=== PATIENT | female | born 1985 | race American Indian/Alaskan Native ===

== ENCOUNTER 2017-03-21 17:39 | Emergency (ER) | payer MEDICAID ==
[2017-03-21 18:35] LABS: Basophils % (Auto) 0.4 % (0.0-1.8); Eosinophils % (Auto) 0.5 % (0.0-4.3); Hematocrit 40.1 % (30.3-42.9); Hemoglobin 13.6 gm/dl (10.1-14.3); Mean Corpuscular HGB Conc 34 % (30-34); Mean Corpuscular Hemoglobin 33 pg (28-32); Mean Corpuscular Volume 96 fl (79-97); Platelet Count 313 K/mm3 (140-440); Red Blood Count 4.17 M/mm3 (3.65-5.03); Red Cell Distribution Width 13.4 % (13.2-15.2); White Blood Count 9.7 K/mm3 (4.5-11.0)
[2017-03-21 18:52] LABS: Alanine Aminotransferase 9 units/L (7-56); Albumin 4.4 g/dL (3.9-5); Albumin/Globulin Ratio 1.3 %; Alkaline Phosphatase 77 units/L (35-129); Anion Gap 18 mmol/L; BUN/Creatinine Ratio 24; Blood Urea Nitrogen 12 mg/dL (7-17); Calcium 9.6 mg/dL (8.4-10.2); Carbon Dioxide 27 mmol/L (22-30); Chloride 95.9 mmol/L (98-107); Glucose 99 mg/dL (65-100); Potassium 4.8 mmol/L (3.6-5.0); Sodium 136 mmol/L (137-145); Total Protein 7.7 g/dL (6.3-8.2)
[2017-03-21 22:45] LABS: Bilirubin,Urine NEG (Negative); Blood,Urine SM (Negative); Ketones,Urine 20 mg/dL (Negative); Leukocyte Esterase,Urine NEG (Negative); Mucus,Urine 3+ /HPF; Nitrite,Urine NEG (Negative); Protein,Urine <15 mg/dL mg/dL (Negative); Urobilinogen,Urine < 2.0 mg/dL (<2.0)
[2017-03-21] MEDS ORDERED: TYLENOL #3 PO ONE (23:18)
[2017-03-21] MEDS ORDERED: MOTRIN PO ONE (23:18)
--- NOTE | 2017-03-21 23:23 | Emergency Department Report ---
ED Female HPI - General Chief complaint: Rectal Pain Stated complaint: ANAL BLEEDING Time Seen by Provider: 03/21/17 22:53 Source: patient Mode of arrival: Ambulatory Limitations: No Limitations - Related Data Previous Rx's Medication Instructions Recorded Last Taken Type Docusate Sodium [Colace CAP] 100 mg PO TID PRN #30 capsule 03/21/17 Unknown Rx Ibuprofen [Motrin] 600 mg PO Q8H PRN #30 tablet 03/21/17 Unknown Rx Lidocaine Topical 2% [Xylocaine 1 applicatio MM BID PRN #1 tube 03/21/17 Unknown Rx Topical 2%] PE/Shk Lvr/Mo/Pet,Wh [Preparation 1 gm MI BID PRN #1 tube 03/21/17 Unknown Rx H] Allergies Allergy/AdvReac Type Severity Reaction Status Date / Time No Known Allergies Allergy Unverified 03/21/17 17:55 ED Review of Systems ROS: Stated complaint: ANAL BLEEDING Other details as noted in HPI ED Past Medical Hx - Past Medical History Previous Medical History?: No - Surgical History Past Surgical History?: No - Social History Smoking Status: Never Smoker Substance Use Type: None - Medications Home Medications: Home Medications Medication Instructions Recorded Confirmed Last Taken Type Docusate Sodium [Colace CAP] 100 mg PO TID PRN #30 capsule 03/21/17 Unknown Rx Ibuprofen [Motrin] 600 mg PO Q8H PRN #30 tablet 03/21/17 Unknown Rx Lidocaine Topical 2% [Xylocaine 1 applicatio MM BID PRN #1 tube 03/21/17 Unknown Rx Topical 2%] PE/Shk Lvr/Mo/Pet,Wh [Preparation 1 gm MI BID PRN #1 tube 03/21/17 Unknown Rx H] ED Physical Exam - General Limitations: No Limitations General appearance: alert, in no apparent distress - Head Head exam: Present: atraumatic, normocephalic - Eye Eye exam: Present: normal appearance, PERRL, EOMI - ENT ENT exam: Present: mucous membranes moist - Neck Neck exam: Present: normal inspection - Respiratory Respiratory exam: Present: normal lung sounds bilaterally. Absent: respiratory distress - Cardiovascular Cardiovascular Exam: Present: regular rate, normal rhythm. Absent: systolic murmur, diastolic murmur, rubs, gallop - GI/Abdominal GI/Abdominal exam: Present: soft, normal bowel sounds - Rectal Rectal exam: Present: heme (-) stool, hemorrhoids - Extremities Exam Extremities exam: Present: normal inspection - Back Exam Back exam: Present: normal inspection - Neurological Exam Neurological exam: Present: alert, oriented X3 - Psychiatric Psychiatric exam: Present: normal affect, normal mood - Skin Skin exam: Present: warm, dry, intact, normal color. Absent: rash ED Course Vital Signs 03/21/17 17:52 Temperature 97.9 F Pulse Rate 68 Respiratory 18 Rate Blood Pressure 113/73 O2 Sat by Pulse 96 Oximetry ED Medical Decision Making - Lab Data Result diagrams: 03/21/17 17:58 03/21/17 17:58 - Medical Decision Making A/P: External hemorrhoids 1-stool softener, NSAIDs, topical preparation H and lidocaine when necessary 2-grossly negative guaiac, guaiac negative on Hemoccult card 3-CBC within normal limits 4- follow-up with gastroenterology/surgery. Patient has small external hemorrhoid is not thrombosed and no signs of clinical infection or abscess on exam. Critical care attestation.: If time is entered above; I have spent that time in minutes in the direct care of this critically ill patient, excluding procedure time. ED Disposition Clinical Impression: External hemorrhoid Disposition: DC-01 TO HOME OR SELFCARE Is pt being admited?: No Does the pt Need Aspirin: No Condition: Stable Instructions: Hemorrhoids (ED), Rectal Bleeding (ED) Prescriptions: Docusate Sodium [Colace CAP] 100 mg PO TID PRN #30 capsule PRN Reason: Constipation Ibuprofen [Motrin] 600 mg PO Q8H PRN #30 tablet PRN Reason: Pain Lidocaine Topical 2% [Xylocaine Topical 2%] 1 applicatio MM BID PRN #1 tube PRN Reason: Pain PE/Shk Lvr/Mo/Pet,Wh [Preparation H] 1 gm MI BID PRN #1 tube PRN Reason: Itching Referrals: PARISA MENDZE DO [Staff Physician] - 3-5 Days [facility] [Provider Group] - 3-5 Days Time of Disposition: 23:18
[2017-03-21 23:33] VITALS: BP 118/69
== END 2017-03-21 23:34 | disposition home or self-care (01) ==
LOC: ED 17:39
DX: K64.4 Residual hemorrhoidal skin tags (principal)
CPT/HCPCS: 36415; 80053; 81001; 85025; 99283

== ENCOUNTER 2020-11-22 21:33 | Inpatient (IN) | payer MEDICAID ==
[2020-11-22] MEDS ORDERED: SODIUM CHLORIDE 0.9% 1000 ML 1,000 ML IV ONE (22:41)
[2020-11-22] MEDS ORDERED: LORazepam 2 MG/ML VIAL IV ONE (22:41)
--- NOTE | 2020-11-22 22:48 | Emergency Department Report ---
ED General Adult HPI - General Chief complaint: Weakness Stated complaint: HAND/FACE NUMBNESS Time Seen by Provider: 11/22/20 22:11 Source: patient Mode of arrival: Ambulatory Limitations: Physical Limitation - History of Present Illness Initial comments: 35-year-old female patient with history of peripheral neuropathy presents to the emergency department with complaints of numbness in her jaw, both hands, and both legs progressively worsening for several months. For the last several weeks, symptoms have been worse in the right arm and right leg. Additionally, patient endorses blurred vision, more pronounced on the left eye, as well as intermittent headaches. No fall, trauma, or injury. No recent travel. No recent illnesses. No recent vaccinations. No history of prior surgeries. Patient was diagnosed with peripheral neuropathy at another emergency department and referred to a neurologist for further outpatient evaluation. However, she was unable to comply with follow-up instructions due to financial constraints. Patient states her ability to walk has progressively worsened to the point where she cannot ambulate without assistance, and she has been experiencing bladder incontinence for several weeks. Denies syncope, seizure, chest pain, shortness of breath, vomiting, diarrhea, back pain, neck pain. Denies all other complain ts at this time. - Related Data Previous Rx's Medication Instructions Recorded Last Taken Type Docusate Sodium [Colace CAP] 100 mg PO TID PRN #30 capsule 03/21/17 Unknown Rx Ibuprofen [Motrin] 600 mg PO Q8H PRN #30 tablet 03/21/17 Unknown Rx Lidocaine Topical 2% 30Ml 1 applicatio MM BID PRN #1 tube 03/21/17 Unknown Rx [Xylocaine Topical 2% 30Ml] PE/Mo/Pet,Wh [Preparation H] 1 gm ID BID PRN #1 tube 03/21/17 Unknown Rx Allergies Allergy/AdvReac Type Severity Reaction Status Date / Time No Known Allergies Allergy Unverified 03/21/17 17:55 ED Review of Systems ROS: Stated complaint: HAND/FACE NUMBNESS Other details as noted in HPI Other: GENERAL: Negative for fever, chills, weight change, anorexia, fatigue. EYES: Positive for blurred vision. ENT: Negative for ear pain, difficulty hearing, sore throat, nasal congestion, epistaxis. CARDIOVASCULAR: Negative for chest pain, palpitations, lower extremity swelling. PULMONARY: Negative for cough, dyspnea, wheezing, orthopnea, cyanosis. GASTROINTESTINAL: Negative for abdominal pain, nausea, vomiting, diarrhea, constipation. GENITOURINARY: Positive for urinary incontinence. MUSCULOSKELETAL: Positive for joint pain. NEUROLOGICAL: Positive for headaches, numbness, weakness, paresthesias. INTEGUMENTARY: Negative for erythema, rash, diaphoresis, laceration, ecchymosis. HEMATOLOGICAL: Negative for hemoptysis, hematemesis, hematochezia, hematuria. PSYCHIATRIC: Negative for hallucinations, suicidal ideation, homicidal ideation, anxiety, depression. ED Past Medical Hx - Past Medical History Previous Medical History?: Yes Additional medical history: anemia, peripheral neuropathy - Surgical History Past Surgical History?: Yes Additional Surgical History: x1 - Social History Smoking Status: Never Smoker Substance Use Type: None - Medications Home Medications: Home Medications Medication Instructions Recorded Confirmed Last Taken Type Docusate Sodium [Colace CAP] 100 mg PO TID PRN #30 capsule 03/21/17 Unknown Rx Ibuprofen [Motrin] 600 mg PO Q8H PRN #30 tablet 03/21/17 Unknown Rx Lidocaine Topical 2% 30Ml 1 applicatio MM BID PRN #1 tube 03/21/17 Unknown Rx [Xylocaine Topical 2% 30Ml] PE/Mo/Pet,Wh [Preparation H] 1 gm ID BID PRN #1 tube 03/21/17 Unknown Rx ED Physical Exam - General Limitations: Physical Limitation - Other Other exam information: General: Awake and alert. Tearful, anxious. Head: Atraumatic, normocephalic. Eyes: EOMI. Pupils are equal and round. Normal sclera and conjunctiva. ENT: Oral mucosa is moist. Normal pharyngeal exam. Neck: Supple. No lymphadenopathy. Pulmonary: No respiratory distress. Clear to auscultation bilaterally. Cardiac: Tachycardic. Pulses are palpable and equal bilaterally. No lower extremity cyanosis or edema. Skin: Warm and dry. No rashes. Abdomen: Soft, non-tender, non-protuberant. No guarding, rigidity, or rebound. Bowel sounds are normal. No organomegaly or masses noted. Back: Normal alignment. No CVA tenderness. Extremities: Symmetrical. Full range of motion intact. Neurological: Alert and oriented. Diminished sensation to light palpation along right upper and right lower extremity. Strength is 5/5 on the left upper and left lower extremity, 4/5 on the right upper extremity, 3/5 on the right lower extremity. Psych: Cooperative. Appropriate mood and affect. Speech is evenly metered. Thou ghts are logically construed. ED Course Vital Signs 11/22/20 21:41 Temperature 98.2 F Pulse Rate 131 H Respiratory 16 Rate Blood Pressure 124/92 [Right] O2 Sat by Pulse 96 Oximetry ED Medical Decision Making - Lab Data Result diagrams: 11/22/20 22:24 11/22/20 22:24 - Medical Decision Making Differential diagnosis including but not limited to: dehydration, electrolyte abnormality, hypoglycemia, diabetes, hypothyroidism, cerebra ischemia, intracranial hemorrhage, space-occupying lesion, transverse myelitis, multiple sclerosis, Guillain-Villalpando syndrome, encephalitis Patient presents to the emergency department with progressively worsening neurological complaints for several weeks. Patient is tearful and anxious on arrival with heart rate of 130 bpm. Given IV fluids and Ativan. She was previously diagnosed with peripheral neuropathy and referred to a neurologist for further evaluation but was unable to follow-up due to financial constraints. Her upper and lower extremity weakness, as well as her right sided sensory deficits, have worsened to the point where she is unable to ambulate without assistance. Additionally, patient reports urinary and fecal incontinence for the last several weeks. There has been no fall, trauma, or injury. Patient has been experiencing intermittent headaches without associated neck or back pain. Stroke protocol not initiated due to prolonged symptom duration. Labs and imaging are unremarkable. test is negative. Further diagnostic work- up to include MRI and neurological consultation is warranted for further evaluation of these symptoms, particularly since she has been unable to obtain the necessary studies on an outpatient basis. Multiple sclerosis has not been excluded; given one-time dose of IV Solu-Medrol while awaiting further work-up. Case discussed with hospitalist, who agrees to admit. Patient expressed understanding and is agreeable to plan of care. Case discussed with Dr. Evans, attending emergency physician, who personally evaluated the patient and agrees with diagnostic work-up/plan of care. Critical care attestation.: If time is entered above; I have spent that time in minutes in the direct care of this critically ill patient, excluding procedure time. ED Disposition Clinical Impression: Numbness, Weakness Disposition: OP ADMIT IP TO THIS HOSP Is pt being admited?: Yes Condition: Stable Time of Disposition: 00:12
[2020-11-22 22:56] LABS: Basophils # (Auto) 0.1 K/mm3 (0.0-0.1); Basophils % (Auto) 1.7 % (0.0-1.8); Eosinophils # (Auto) 0.2 K/mm3 (0.0-0.4); Eosinophils % (Auto) 2.5 % (0.0-4.3); Hematocrit 38.3 % (30.3-42.9); Lymphocytes # (Auto) 3.2 K/mm3 (1.2-5.4); Lymphocytes % (Auto) 38.4 % (13.4-35.0); Mean Corpuscular HGB Conc 37 % (30-34); Mean Corpuscular Volume 121 fl (79-97); Monocytes # (Auto) 0.8 K/mm3 (0.0-0.8); Monocytes % (Auto) 10.2 % (0.0-7.3); Platelet Count 363 K/mm3 (140-440); Red Blood Count 3.18 M/mm3 (3.65-5.03); Red Cell Distribution Width 14.6 % (13.2-15.2)
[2020-11-22 23:11] LABS: Alanine Aminotransferase 12 units/L (7-56); Albumin 4.3 g/dL (3.9-5); Blood Urea Nitrogen 5 mg/dL (7-17); Calcium 8.9 mg/dL (8.4-10.2); Hemolysis Index 2
[2020-11-22 23:13] LABS: BUN/Creatinine Ratio 8
--- NOTE | 2020-11-22 23:54 | Cat Scan Report ---
CT HEAD WITHOUT CONTRAST INDICATION : multiple neurological complaints. TECHNIQUE: Axial, coronal and sagittal CT imaging was performed from the skull apex through the skul l base without contrast. All CT scans at this location are performed using CT dose reduction for ALA RA by means of automated exposure control. COMPARISON: None available. FINDINGS: PARENCHYMA: No mass, midline shift, hemorrhage, extraaxial collection or acute territorial infarctio n. VENTRICLES: Symmetric and normal in size. SOFT TISSUES: No significant abnormality of the included soft tissues/orbits. BONES: No acute osseous abnormality. SINUSES: No significant abnormality. ADDITIONAL FINDINGS: None. IMPRESSION: 1. No acute intracranial abnormality. Signer Name: Adam Cadena MD Signed: 11/22/2020 11:49 PM Workstation Name: [id number]
[2020-11-23] MEDS ORDERED: methylPREDNISolone Sod Succinate 125 MG/2 ML INJ IV ONE (00:05)
[2020-11-23] MEDS ORDERED: ACETAMINOPHEN 325 MG TAB PO PRN (01:09)
[2020-11-23] MEDS ORDERED: ALBUTEROL 2.5 MG/3 ML NEBU IH PRN (01:09)
[2020-11-23] MEDS ORDERED: ONDANSETRON 4 MG/2 ML INJ IV PRN (01:09)
--- NOTE | 2020-11-23 01:22 | History and Physical Report ---
History of Present Illness Date of examination: 11/23/20 Date of admission: 11/23/20 Chief complaint: Numbness of hands and face, weakness History of present illness: 35-year-old female with history of peripheral neuropathy was brought to the emergency room because of numbness in her jaw, both hands, and both legs progressively worsening for several months. For the last several weeks, symptoms have been worse in the right arm and right leg. Additionally, patient endorses blurred vision, more pronounced on the left eye, as well as intermittent headaches. No fall, trauma, or injury. No recent travel. No recent illnesses. No recent vaccinations. No history of prior surgeries. Patient was diagnosed with peripheral neuropathy at another emergency department and referred to a neurologist for further outpatient evaluation. However, she was unable to comply with follow-up instructions due to financial constraints. Patient states her ability to walk has progressively worsened to the point where she cannot ambulate without assistance, and she has been experiencing bladder incontinence for several weeks. Initial CT scan of the head shows no acute intracranial abnormality Past History Past Medical History: other (Peripheral neuropathy) Medications and Allergies Allergies Allergy/AdvReac Type Severity Reaction Status Date / Time No Known Allergies Allergy Unverified 03/21/17 17:55 Home Medications Medication Instructions Recorded Confirmed Last Taken Type Docusate Sodium [Colace CAP] 100 mg PO TID PRN #30 capsule 03/21/17 Unknown Rx Ibuprofen [Motrin] 600 mg PO Q8H PRN #30 tablet 03/21/17 Unknown Rx Lidocaine Topical 2% 30Ml 1 applicatio MM BID PRN #1 tube 03/21/17 Unknown Rx [Xylocaine Topical 2% 30Ml] PE/Mo/Pet,Wh [Preparation H] 1 gm ID BID PRN #1 tube 03/21/17 Unknown Rx Active Meds: Active Medications Acetaminophen (Acetaminophen 325 Mg Tab) 650 mg PO Q4H PRN PRN Reason: Pain MILD(1-3)/Fever >100.5/LARIOS Albuterol (Albuterol 2.5 Mg/3 Ml Nebu) 2.5 mg IH Q4HRT PRN PRN Reason: Shortness Of Breath Aspirin (Aspirin 325 Mg Tab) 325 mg PO QDAY RUBY Atorvastatin Calcium (Atorvastatin 40 Mg Tab) 40 mg PO QHS RUBY Famotidine (Famotidine 20 Mg Tab) 20 mg PO BID RUBY Heparin Sodium (Porcine) (Heparin 5,000 Unit/1 Ml Vial) 5,000 unit SUB-Q Q8HR RUBY Ondansetron HCl (Ondansetron 4 Mg/2 Ml Inj) 4 mg IV Q8H PRN PRN Reason: Nausea And Vomiting Sodium Chloride (Sodium Chloride 0.9% 10 Ml Flush Syringe) 10 ml INJ PRN PRN PRN Reason: LINE FLUSH Sodium Chloride (Sodium Chloride 0.9% 10 Ml Flush Syringe) 10 ml IV BID RUBY Sodium Chloride (Sodium Chloride 0.9% 10 Ml Flush Syringe) 10 ml IV PRN PRN PRN Reason: LINE FLUSH Review of Systems Neurological: weakness, parathesias, numbness, headaches Exam - Constitutional Vitals: Temp Pulse Resp BP Pulse Ox 98.2 F 131 H 16 124/92 96 11/22/20 21:41 11/22/20 21:41 11/22/20 21:41 11/22/20 21:41 11/22/20 21:41 General appearance: Present: no acute distress, well-nourished - EENT Eyes: Present: PERRL ENT: hearing intact, clear oral mucosa - Neck Neck: Present: supple, normal ROM - Respiratory Respiratory effort: normal Respiratory: bilateral: CTA - Cardiovascular Heart Sounds: Present: S1 & S2. Absent: rub, click - Extremities Extremities: pulses symmetrical, No edema Peripheral Pulses: within normal limits - Abdominal General gastrointestinal: Present: soft, non-tender, non-distended, normal bowel sounds Female genitourinary: Present: normal - Integumentary Integumentary: Present: clear, warm, dry - Musculoskeletal Musculoskeletal: gait normal, strength equal bilaterally - Psychiatric Psychiatric: appropriate mood/affect, intact judgment & insight - Neurologic Neurologic: CNII-XII intact, other (Alert and oriented. Diminished sensation to light palpation along right upper and right lower extremity. Strength is 5/5 on the left upper and left lower extremity, 4/5 on the right upper extremity, 3/5 on the right lower extremity) Results - Labs CBC & Chem 7: 11/22/20 22:24 11/22/20 22:24 Labs: Laboratory Last Values WBC 8.3 K/mm3 (4.5-11.0) 11/22/20 22:24 RBC 3.18 M/mm3 (3.65-5.03) L 11/22/20 22:24 Hgb 14.0 gm/dl (10.1-14.3) 11/22/20 22:24 Hct 38.3 % (30.3-42.9) 11/22/20 22:24 MCV 121 fl (79-97) H 11/22/20 22:24 MCH 44 pg (28-32) H 11/22/20 22:24 MCHC 37 % (30-34) H 11/22/20 22:24 RDW 14.6 % (13.2-15.2) 11/22/20 22:24 Plt Count 363 K/mm3 (140-440) 11/22/20 22:24 Lymph % (Auto) 38.4 % (13.4-35.0) H 11/22/20 22:24 [place] % (Auto) 10.2 % (0.0-7.3) H 11/22/20 22:24 Eos % (Auto) 2.5 % (0.0-4.3) 11/22/20 22:24 Baso % (Auto) 1.7 % (0.0-1.8) 11/22/20 22:24 Lymph # (Auto) 3.2 K/mm3 (1.2-5.4) 11/22/20 22:24 [place] # (Auto) 0.8 K/mm3 (0.0-0.8) 11/22/20 22:24 Eos # (Auto) 0.2 K/mm3 (0.0-0.4) 11/22/20 22:24 Baso # (Auto) 0.1 K/mm3 (0.0-0.1) 11/22/20 22:24 Seg Neutrophils % 47.2 % (40.0-70.0) 11/22/20 22:24 Seg Neutrophils # 3.9 K/mm3 (1.8-7.7) 11/22/20 22:24 Sodium 139 mmol/L (137-145) 11/22/20 22:24 Potassium 3.8 mmol/L (3.6-5.0) 11/22/20 22:24 Chloride 107.5 mmol/L (98-107) H 11/22/20 22:24 Carbon Dioxide 19 mmol/L (22-30) L 11/22/20 22:24 Anion Gap 16 mmol/L 11/22/20 22:24 BUN 5 mg/dL (7-17) L 11/22/20 22:24 Creatinine 0.6 mg/dL (0.6-1.2) 11/22/20 22:24 Estimated GFR > 60 ml/min 11/22/20 22:24 BUN/Creatinine Ratio 8 % 11/22/20 22:24 Glucose 102 mg/dL (65-100) H 11/22/20 22:24 Calcium 8.9 mg/dL (8.4-10.2) 11/22/20 22:24 Magnesium 2.10 mg/dL (1.7-2.3) 11/22/20 22:50 Total Bilirubin 0.40 mg/dL (0.1-1.2) 11/22/20 22:24 AST 16 units/L (5-40) 11/22/20 22:24 ALT 12 units/L (7-56) 11/22/20 22:24 Alkaline Phosphatase 72 units/L (35-129) 11/22/20 22:24 Total Protein 7.7 g/dL (6.3-8.2) 11/22/20 22:24 Albumin 4.3 g/dL (3.9-5) 11/22/20 22:24 Albumin/Globulin Ratio 1.3 % 11/22/20 22:24 TSH 0.343 mlU/mL (0.270-4.200) 11/22/20 22:50 HCG, Qual Negative (Negative) 11/22/20 22:50 - Imaging and Cardiology CT Scan - head: report reviewed Assessment and Plan VTE prophylaxis?: Chemical Plan of care discussed with patient/family: Yes - Patient Problems (1) Peripheral neuropathy Current Visit: Yes Status: Acute Plan to address problem[facility] Aspirin 325 mg p.o. daily. Lipitor 40 mg p.o. daily. We will do the MRI of the brain with and without contrast and MRA of the brain and neck with and without contrast. Echocardiogram. PT OT speech evaluation. Neurology evaluation. Patient get 1 dose of steroid in the emergency room (2) Numbness Current Visit: Yes Status: Acute Plan to address problem: Aspirin 325 mg p.o. daily. Lipitor 40 mg p.o. daily. We will do the MRI of the brain with and without contrast and MRA of the brain and neck with and without contrast. Echocardiogram. PT OT speech evaluation. Neurology evaluation. Patient get 1 dose of steroid in the emergency room (3) Weakness Current Visit: Yes Status: Acute Plan to address problem: Multivitamin 1 tablet p.o. daily. Reconsult PT OT any speech evaluation. Neurology consult (4) DVT prophylaxis Current Visit: Yes Status: Acute Plan to address problem: Heparin 5000 units subcu every 8 hours for DVT prophylaxis. Pepcid 20 mg p.o. twice daily for GI prophylaxis. Patient is a full code
[2020-11-23] MEDS ORDERED: PE/MO/PET,WH 10 APPLIC/28 GM TUBE PR PRN (01:23)
[2020-11-23] MEDS ORDERED: DOCUSATE SODIUM 100 MG CAP PO PRN (01:23)
[2020-11-23] MEDS ORDERED: IBUPROFEN 600 MG TAB PO PRN (01:23)
[2020-11-23] MEDS ORDERED: methylPREDNISolone Sod Succinate 125 MG/2 ML INJ ONE ×2 (02:07)
[2020-11-23] MEDS: MULTIVITAMINS ,THERAPEUTIC TAB PO SCH ×2 (03:57→12:00)
[2020-11-23 04:32] LABS: Bilirubin,Urine NEG (Negative); Blood,Urine SM (Negative); Color,Urine Yellow (Yellow); Mucus,Urine 3+ /HPF; Protein,Urine <15 mg/dL mg/dL (Negative)
[2020-11-23 04:55] LABS: Amphetamine Screen,Urine Negative; Benzodiazepines Screen,Urine Negative; Cocaine Screen,Urine Negative; Methadone Screen,Urine Negative; Opiate Screen,Urine Negative
[2020-11-23 05:26] LABS: Cannabinoid Screen,Urine Positive
[2020-11-23] MEDS: HEPARIN 5,000 UNIT/1 ML VIAL SUB-Q SCH ×3 (07:45→21:53)
--- NOTE | 2020-11-23 10:21 | Magnetic Resonance Report ---
MRI BRAIN WITHOUT CONTRAST INDICATION / CLINICAL INFORMATION: stroke. TECHNIQUE: Multisequence, multiplanar images were obtained. COMPARISON: CT head 11/14/2020 FINDINGS: CEREBRAL and CEREBELLAR HEMISPHERES: No evidence of mass or mass effect. No midline shift. No acute hemorrhage. No diffusion restriction to suggest acute infarct. No extra-axial fluid collection. M inimal nonspecific T2 signal abnormalities in the white matter are nonspecific but most likely relate d to chronic microangiopathy or less likely demyelination. VENTRICLES: Normal in size and configuration for age. VISUALIZED ORBITS: No significant abnormality. VISUALIZED PARANASAL SINUSES: No significant abnormality. ADDITIONAL FINDINGS: None. IMPRESSION: No acute intracranial abnormality is identified. No evidence for hemorrhage, mass or acute ischemia. Minimal nonspecific chronic white matter changes. MRA HEAD WITHOUT CONTRAST HISTORY: Stroke COMPARISON: MR brain performed the same day TECHNIQUE: Routine MRA of the head is performed. 3-D/MIP reformats postprocessed. CONTRAST: None. FINDINGS: Intracranial vertebral arteries: No significant abnormality. Basilar artery: No significant abnormality. Posterior cerebral arteries: No significant abnormality. Intracranial internal carotid arteries: No significant abnormality. Anterior cerebral arteries: No significant abnormality. Middle cerebral arteries: No significant abnormality. Additional findings: Small left posterior communicating artery is noted. IMPRESSION: No significant abnormality. Signer Name: Joel Schafer Jr, MD Signed: 11/23/2020 10:17 AM Workstation Name: [id number]
--- NOTE | 2020-11-23 11:44 | Event Note ---
Date: 11/23/20 Patient was admitted earlier this morning. Patient admitted for numbness and generalized weakness. Patient was diagnosed with neuropathy. Neurology consulted. Patient started on gabapentin for neuropathy and she is also complaining severe pain and I put her on tramadol. Continue management as outlined in HPI.
[2020-11-23] MEDS: traMADol 50 MG TAB PO PRN ×2 (11:59→21:22)
[2020-11-23] MEDS: FAMOTIDINE 20 MG TAB PO SCH ×2 (12:00→21:55)
[2020-11-23] MEDS: ASPIRIN 325 MG TAB PO SCH (12:02)
[2020-11-23] MEDS: GABAPENTIN 100 MG CAP PO SCH ×2 (14:55→21:55)
--- NOTE | 2020-11-23 15:12 | Consultation ---
History of Present Illness Consult date: 11/23/20 Reason for Consult: Numbness History of present illness: 35-year-old female with history of peripheral neuropathy was brought to the emergency room because of numbness in her jaw, both hands, and both legs progressively worsening for several months. For the last several weeks, symptoms have been worse in the right arm and right leg. Additionally, patient endorses blurred vision, more pronounced on the left eye, as well as intermittent headaches. No fall, trauma, or injury. No recent travel. No recent illnesses. No recent vaccinations. No history of prior surgeries. Patient was diagnosed with peripheral neuropathy at another emergency department and referred to a neurologist for further outpatient evaluation. However, she was unable to comply with follow-up instructions due to financial constraints. Patient states her ability to walk has progressively worsened to the point where she cannot ambulate without assistance, and she has been experiencing bladder incontinence for several weeks. Initial CT scan of the head shows no acute intracranial abnormality History obtained from Patient . Symptoms are progressive in the last 18 months and severe weakness in the LE. Past History Past Medical History: other (Peripheral neuropathy) Medications and Allergies Allergies Allergy/AdvReac Type Severity Reaction Status Date / Time No Known Allergies Allergy Unverified 03/21/17 17:55 Home Medications Medication Instructions Recorded Confirmed Last Taken Type Docusate Sodium [Colace CAP] 100 mg PO TID PRN #30 capsule 03/21/17 Unknown Rx Ibuprofen [Motrin] 600 mg PO Q8H PRN #30 tablet 03/21/17 Unknown Rx Lidocaine Topical 2% 30Ml 1 applicatio MM BID PRN #1 tube 03/21/17 Unknown Rx [Xylocaine Topical 2% 30Ml] PE/Mo/Pet,Wh [Preparation H] 1 gm [place] BID PRN #1 tube 03/21/17 Unknown Rx Active Meds: Active Medications Acetaminophen (Acetaminophen 325 Mg Tab) 650 mg PO Q4H PRN PRN Reason: Pain MILD(1-3)/Fever >100.5/LARIOS Last Admin: 11/23/20 12:00 Dose: 650 mg Documented by: Albuterol (Albuterol 2.5 Mg/3 Ml Nebu) 2.5 mg IH Q4HRT PRN PRN Reason: Shortness Of Breath Aspirin (Aspirin 325 Mg Tab) 325 mg PO QDAY RUBY Last Admin: 11/23/20 12:02 Dose: 325 mg Documented by: Atorvastatin Calcium (Atorvastatin 40 Mg Tab) 40 mg PO QHS [facility] Docusate Sodium (Docusate Sodium 100 Mg Cap) 100 mg PO TID PRN PRN Reason: Constipation Famotidine (Famotidine 20 Mg Tab) 20 mg PO BID [facility] Last Admin: 11/23/20 12:00 Dose: 20 mg Documented by: Gabapentin (Gabapentin 100 Mg Cap) 100 mg PO Q8HR [facility] Last Admin: 11/23/20 14:55 Dose: 100 mg Documented by: Heparin Sodium (Porcine) (Heparin 5,000 Unit/1 Ml Vial) 5,000 unit SUB-Q Q8HR [facility] Last Admin: 11/23/20 14:06 Dose: Not Given Documented by: Ibuprofen (Ibuprofen 600 Mg Tab) 600 mg PO Q8H PRN PRN Reason: PAIN (1-4) Multivitamins (Multivitamins ,Therapeutic Tab) 1 each PO DAILY [facility] Last Admin: 11/23/20 12:00 Dose: 1 each Documented by: Ondansetron HCl (Ondansetron 4 Mg/2 Ml Inj) 4 mg IV Q8H PRN PRN Reason: Nausea And Vomiting Phenyleph/Shark Oil/Min Oil/Petrol (Pe/Mo/Pet,Wh 10 Applic/28 Gm Tube) 0.357 applic [place] BID PRN PRN Reason: Itching Sodium Chloride (Sodium Chloride 0.9% 10 Ml Flush Syringe) 10 ml IV PRN PRN PRN Reason: LINE FLUSH Sodium Chloride (Sodium Chloride 0.9% 10 Ml Flush Syringe) 10 ml IV BID [facility] Last Admin: 11/23/20 12:00 Dose: 10 ml Documented by: Tramadol HCl (Tramadol 50 Mg Tab) 100 mg PO Q6H PRN PRN Reason: Pain, Moderate (4-6) Last Admin: 11/23/20 11:59 Dose: 100 mg Documented by: Physical Examination - Vital Signs Vital Signs: Vital Signs Temp Pulse Resp BP Pulse Ox 98.2 F 131 H 16 124/92 96 11/22/20 21:41 11/22/20 21:41 11/22/20 21:41 11/22/20 21:41 11/22/20 21:41 - Physical Exam Narrative exam: The patient is alert, There is weakness in the LE strength is aout 3/5 , dorsiflexors and planter flexors are weakness , sensory loss in the LE . Upper Extremity weakness as well noted. DTRs ? absent performed by the tech. Results - Laboratory Findings CBC and BMP: 11/22/20 22:24 11/22/20 22:24 Abnormal Lab Findings: Abnormal Labs 11/22/20 11/22/20 11/23/20 22:24 22:24 04:18 RBC 3.18 L MCV 121 H MCH 44 H MCHC 37 H Lymph % (Auto) 38.4 H [place] % (Auto) 10.2 H Chloride 107.5 H Carbon Dioxide 19 L BUN 5 L Glucose 102 H Urine WBC (Auto) 15.0 H Assessment and Plan 1. 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 Rule Out Cervical Spinal Cord Issues. 3. Low Vitamin B12 needs IM Vitamin B12 1000 ug every other day for next 1 week . 4. LP is recommended for CSF Protien / Sugar / VDRL 5. If CSF Protien is High will recommend IVIG . 6. Follow up with results . Dr. Carson
[2020-11-24] MEDS: HEPARIN 5,000 UNIT/1 ML VIAL SUB-Q SCH ×3 (05:57→21:31)
[2020-11-24] MEDS: GABAPENTIN 100 MG CAP PO SCH ×3 (05:57→21:31)
--- NOTE | 2020-11-24 08:47 | Progress Note ---
Assessment and Plan Assessment and plan: (1) Peripheral neuropathy Current Visit: Yes Status: Acute Plan to address problem: Admit to the [facility]. Aspirin 325 mg p.o. daily. Lipitor 40 mg p.o. daily. We will do the MRI of the brain with and without contrast and MRA of the brain and neck with and without contrast. Echocardiogram. PT OT speech evaluation. Neurology evaluation. Patient get 1 dose of steroid in the emergency room (2) Numbness Current Visit: Yes Status: Acute Plan to address problem: Aspirin 325 mg p.o. daily. Lipitor 40 mg p.o. daily. We will do the MRI of the brain with and without contrast and MRA of the brain and neck with and without contrast. Echocardiogram. PT OT speech evaluation. Neurology evaluation. Patient get 1 dose of steroid in the emergency room (3) Weakness Current Visit: Yes Status: Acute Plan to address problem: Multivitamin 1 tablet p.o. daily. Reconsult PT OT any speech evaluation. Neurology consult (4) DVT prophylaxis Current Visit: Yes Status: Acute Plan to address problem: Heparin 5000 units subcu every 8 hours for DVT prophylaxis. Pepcid 20 mg p.o. twice daily for GI prophylaxis. Patient is a full code 11/24; patient was seen and evaluated by telemetry neurologist and he recommend to do lumbar puncture and to CSF analysis. If protein is high he recommend to start her on IVIG. MRI/MRA head negative. Echo no PFO. PT evaluated and recommend acute rehab but patient stated she wants to go home with home health. She can be discharged home after LP fluid analysis with home PT/OT. History Interval history: Patient was seen and evaluated this this morning Patient has mild right lower extremity weakness and numbness on the fingers Hospitalist Physical - Physical exam Narrative exam: Not in cardiopulmonary distress. The patient appeared well nourished and normally developed. Vital signs as documented. Head exam is unremarkable. No scleral icterus . Neck is without jugular venous distension, thyromegaly, or carotid bruits. Lungs are clear to auscultation. Cardiac exam reveals regular rate and Rhythm. Abdominal exam reveals normal bowel sounds, nontender, no organomegaly. Extremities are nonedematous and both femoral and pedal pulses are normal. APPLICATION DESIGNER: Alert and oriented 3. Lower extremity weakness. - Constitutional Vitals: Temp Pulse Resp BP Pulse Ox 97.8 F 73 18 107/71 99 11/24/20 05:19 11/24/20 05:19 11/24/20 05:19 11/24/20 05:19 11/24/20 05:19 General appearance: Present: no acute distress, well-nourished HEART Score - HEART Score Troponin: Troponin T < 0.010 ng/mL (0.00-0.029) 11/23/20 01:41 Results - Labs CBC & Chem 7: 11/24/20 08:39 11/24/20 08:39 Labs: Laboratory Last Values WBC 8.3 K/mm3 (4.5-11.0) 11/22/20 22:24 RBC 3.18 M/mm3 (3.65-5.03) L 11/22/20 22:24 Hgb 14.0 gm/dl (10.1-14.3) 11/22/20 22:24 Hct 38.3 % (30.3-42.9) 11/22/20 22:24 MCV 121 fl (79-97) H 11/22/20 22:24 MCH 44 pg (28-32) H 11/22/20 22:24 MCHC 37 % (30-34) H 11/22/20 22:24 RDW 14.6 % (13.2-15.2) 11/22/20 22:24 Plt Count 363 K/mm3 (140-440) 11/22/20 22:24 Lymph % (Auto) 38.4 % (13.4-35.0) H 11/22/20 22:24 [place] % (Auto) 10.2 % (0.0-7.3) H 11/22/20 22:24 Eos % (Auto) 2.5 % (0.0-4.3) 11/22/20 22:24 Baso % (Auto) 1.7 % (0.0-1.8) 11/22/20 22:24 Lymph # (Auto) 3.2 K/mm3 (1.2-5.4) 11/22/20 22:24 [place] # (Auto) 0.8 K/mm3 (0.0-0.8) 11/22/20 22:24 Eos # (Auto) 0.2 K/mm3 (0.0-0.4) 11/22/20 22:24 Baso # (Auto) 0.1 K/mm3 (0.0-0.1) 11/22/20 22:24 Seg Neutrophils % 47.2 % (40.0-70.0) 11/22/20 22:24 Seg Neutrophils # 3.9 K/mm3 (1.8-7.7) 11/22/20 22:24 Sodium 139 mmol/L (137-145) 11/22/20 22:24 Potassium 3.8 mmol/L (3.6-5.0) 11/22/20 22:24 Chloride 107.5 mmol/L (98-107) H 11/22/20 22:24 Carbon Dioxide 19 mmol/L (22-30) L 11/22/20 22:24 Anion Gap 16 mmol/L 11/22/20 22:24 BUN 5 mg/dL (7-17) L 11/22/20 22:24 Creatinine 0.6 mg/dL (0.6-1.2) 11/22/20 22:24 Estimated GFR > 60 ml/min 11/22/20 22:24 BUN/Creatinine Ratio 8 % 11/22/20 22:24 Glucose 102 mg/dL (65-100) H 11/22/20 22:24 Calcium 8.9 mg/dL (8.4-10.2) 11/22/20 22:24 Magnesium 2.10 mg/dL (1.7-2.3) 11/22/20 22:50 Total Bilirubin 0.40 mg/dL (0.1-1.2) 11/22/20 22:24 AST 16 units/L (5-40) 11/22/20 22:24 ALT 12 units/L (7-56) 11/22/20 22:24 Alkaline Phosphatase 72 units/L (35-129) 11/22/20 22:24 Troponin T < 0.010 ng/mL (0.00-0.029) 11/23/20 01:41 Total Protein 7.7 g/dL (6.3-8.2) 11/22/20 22:24 Albumin 4.3 g/dL (3.9-5) 11/22/20 22:24 Albumin/Globulin Ratio 1.3 % 11/22/20 22:24 Vitamin B12 272.7 pg/mL (211-911) 11/23/20 13:00 Folate 9.47 ng/mL (7.3-26.0) 11/23/20 13:00 TSH 0.343 mlU/mL (0.270-4.200) 11/22/20 22:50 HCG, Qual Negative (Negative) 11/22/20 22:50 Urine Color Yellow (Yellow) 11/23/20 04:18 Urine Turbidity Clear (Clear) 11/23/20 04:18 Urine pH 6.0 (5.0-7.0) 11/23/20 04:18 Ur Specific Panther Burn 1.015 (1.003-1.030) 11/23/20 04:18 Urine Protein <15 mg/dl mg/dL (Negative) 11/23/20 04:18 Urine Glucose (UA) Neg mg/dL (Negative) 11/23/20 04:18 Urine Ketones Neg mg/dL (Negative) 11/23/20 04:18 Urine Blood Sm (Negative) 11/23/20 04:18 Urine Nitrite Neg (Negative) 11/23/20 04:18 Urine Bilirubin Neg (Negative) 11/23/20 04:18 Urine Urobilinogen 4.0 mg/dL (<2.0) 11/23/20 04:18 Ur Leukocyte Esterase Sm (Negative) 11/23/20 04:18 Urine WBC (Auto) 15.0 /HPF (0.0-6.0) H 11/23/20 04:18 Urine RBC (Auto) 3.0 /HPF (0.0-6.0) 11/23/20 04:18 U Epithel Cells (Auto) 1.0 /HPF (0-13.0) 11/23/20 04:18 Urine Mucus 3+ /HPF 11/23/20 04:18 Urine Opiates Screen Negative 11/23/20 04:18 Urine Methadone Screen Negative 11/23/20 04:18 Ur Barbiturates Screen Negative 11/23/20 04:18 Ur Phencyclidine Scrn Negative 11/23/20 04:18 Ur Amphetamines Screen Negative 11/23/20 04:18 U Benzodiazepines Scrn Negative 11/23/20 04:18 Urine Cocaine Screen Negative 11/23/20 04:18 U Marijuana (THC) Screen Positive 11/23/20 04:18 Drugs of Abuse Note Disclamer 11/23/20 04:18 Wilson/IV: Voiding Method Toilet Active Medications - Current Medications Current Medications: Generic Name Dose Route Start Last Admin Trade Name Freq PRN Reason Stop Dose Admin Acetaminophen 650 mg 11/23/20 01:09 11/23/20 12:00 Acetaminophen 325 Mg Tab PO 650 mg Q4H PRN Administration Pain MILD(1-3)/Fever >100.5/LARIOS Albuterol 2.5 mg 11/23/20 01:09 Albuterol 2.5 Mg/3 Ml Nebu IH Q4HRT PRN Shortness Of Breath Aspirin 325 mg 11/23/20 10:00 11/23/20 12:02 Aspirin 325 Mg Tab PO 325 mg QDAY RUBY Administration Atorvastatin Calcium 40 mg 11/23/20 22:00 11/23/20 21:54 Atorvastatin 40 Mg Tab PO 40 mg QHS RUBY Administration Docusate Sodium 100 mg 11/23/20 01:23 Docusate Sodium 100 Mg Cap PO TID PRN Constipation Famotidine 20 mg 11/23/20 10:00 11/23/20 21:55 Famotidine 20 Mg Tab PO 20 mg BID RUBY Administration Gabapentin 100 mg 11/23/20 14:00 11/24/20 05:57 Gabapentin 100 Mg Cap PO 100 mg Q8HR RUBY Administration Heparin Sodium (Porcine) 5,000 unit 11/23/20 06:00 11/24/20 05:57 Heparin 5,000 Unit/1 Ml Vial SUB-Q 5,000 unit Q8HR RUYB Administration Ceftriaxone Sodium 2 gm in 100 mls @ 200 mls/hr 11/24/20 09:00 Rocephin/Ns 2 Gm/100 Ml IV Q24H RUBY Protocol Ibuprofen 600 mg 11/23/20 01:23 Ibuprofen 600 Mg Tab PO Q8H PRN PAIN (1-4) Multivitamins 1 each 11/23/20 01:23 11/23/20 12:00 Multivitamins ,Therapeutic Tab PO 1 each DAILY RUBY Administration Ondansetron HCl 4 mg 11/23/20 01:09 Ondansetron 4 Mg/2 Ml Inj IV Q8H PRN Nausea And Vomiting Phenyleph/Shark Oil/Min Oil/Petrol 0.357 applic 11/23/20 01:23 Pe/Mo/Pet,Wh 10 Applic/28 Gm Tube HI BID PRN Itching Sodium Chloride 10 ml 11/23/20 01:09 Sodium Chloride 0.9% 10 Ml Flush Syringe IV PRN PRN LINE FLUSH Sodium Chloride 10 ml 11/23/20 10:00 11/23/20 22:51 Sodium Chloride 0.9% 10 Ml Flush Syringe IV 10 ml BID RUBY Administration Tramadol HCl 100 mg 11/23/20 11:38 11/23/20 21:22 Tramadol 50 Mg Tab PO 100 mg Q6H PRN Administration Pain, Moderate (4-6)
[2020-11-24 09:40] LABS: Basophils # (Auto) 0.1 K/mm3 (0.0-0.1); Basophils % (Auto) 0.9 % (0.0-1.8); Eosinophils # (Auto) 0.1 K/mm3 (0.0-0.4); Hemoglobin 12.8 gm/dl (10.1-14.3); Lymphocytes # (Auto) 3.2 K/mm3 (1.2-5.4); Lymphocytes % (Auto) 36.5 % (13.4-35.0); Mean Corpuscular HGB Conc 35 % (30-34); Monocytes # (Auto) 1.1 K/mm3 (0.0-0.8); Monocytes % (Auto) 12.5 % (0.0-7.3); Platelet Count 330 K/mm3 (140-440); Red Blood Count 3.03 M/mm3 (3.65-5.03); Red Cell Distribution Width 14.6 % (13.2-15.2)
[2020-11-24] MEDS: cefTRIAXone/NS 2 GM/100 ML 2 GM/100 ML BAG IV SCH (09:48)
[2020-11-24] MEDS: ASPIRIN 325 MG TAB PO SCH (09:49)
[2020-11-24] MEDS: FAMOTIDINE 20 MG TAB PO SCH ×2 (09:49→21:31)
[2020-11-24] MEDS: MULTIVITAMINS ,THERAPEUTIC TAB PO SCH (09:49)
[2020-11-24 10:06] LABS: Blood Urea Nitrogen 8 mg/dL (7-17); Calcium 9.5 mg/dL (8.4-10.2); Hemolysis Index 10
[2020-11-24 10:14] LABS: BUN/Creatinine Ratio 20
[2020-11-24 10:26] LABS: Mean Corpuscular Volume 122 fl (79-97)
[2020-11-24 10:40] LABS: INR 1.13 (0.87-1.13)
[2020-11-24 10:41] LABS: Partial Thromboplastin Time 27.5 Sec. (24.2-36.6)
--- NOTE | 2020-11-24 12:12 | Procedure Note ---
Date of procedure: 11/24/20 Pre-op diagnosis: meningitis, facial numbness Post-op diagnosis: same Procedure: lumbar puncture under flouro Findings: none Anesthesia: local Surgeon: GIOVANI OLEARY Estimated blood loss: none Pathology: list (4 csf tubs) Specimen disposition: to lab Condition: stable Disposition: floor
--- NOTE | 2020-11-24 13:44 | Magnetic Resonance Report ---
MR cervical spine wo con INDICATION / CLINICAL INFORMATION: 35 years Female; Spinal Stenosis. TECHNIQUE: Multisequence, multiplanar images of the cervical spine were obtained. COMPARISON: None available. FINDINGS: CRANIOCERVICAL JUNCTION:No significant abnormality. ALIGNMENT: Mild kyphosis seen, which may be related to patient positioning. VERTEBRAE:Grossly normal marrow signal and vertebral body height for age. VISUALIZED SPINAL CORD: Increased T2 signal seen in the dorsal columns bilaterally extending from the C2 level inferiorly to the C6-7 region. Subacute combined degeneration, copper deficiency, vitamin D deficiency, methotrexate-induced myelopathy, HIV myelopathy, tabes dorsalis, etc. might be considere d. Please clinically correlate. INTERVERTEBRAL DISCS: Grossly normal in height and signal intensity. [id number]-XI-[id number] ANALYSIS: C2-3: No significant abnormality. C3-4: No significant abnormality. C4-5: Minimal disc bulge and very small posterocentral disc protrusion. C5-6: Very small left paracentral, broad-based disc protrusion. C6-7: No significant abnormality. C7-T1: Facet hypertrophy noted bilaterally, without significant sequela. PARASPINAL SOFT TISSUES: No significant abnormality. ADDITIONAL FINDINGS: None. IMPRESSION: 1. Dorsal column signal abnormality in the cervical cord, as described above in detail. 2. Mild degenerative changes as described above. Signer Name: Ceferino Aquino MD, III Signed: 11/24/2020 1:39 PM Workstation Name: [id number]
[2020-11-24] MEDS: traMADol 50 MG TAB PO PRN (14:09)
[2020-11-24 14:58] LABS: Glucose,CSF 57 mg/dL
[2020-11-24 15:49] LABS: Appearance,CSF CLEAR; Red Blood Cell,CSF 0 /mm3 (0-0); White Blood Cell,CSF 0 /mm3 (1-10)
--- NOTE | 2020-11-24 16:01 | Progress Note ---
Subjective Date of service: 11/24/20 Principal diagnosis: Weakness Interval history: The CSF study was evaluated - Since the CSF protiens are not high will currently hold IVIG . The patient needs symtomatic management in hospital - Vitamin B12 1000 ug IM every other day while she is there then twice a month . Out Patient NCV . Agree with Steriods for 3 days . call back with questions Dr. Carson ( patient needs out / inpatient pt ) Objective - Vital Sign Vital Signs - 12hr 11/24/20 11/24/20 05:19 09:09 Temperature 97.8 F Pulse Rate 73 Respiratory 18 Rate Blood Pressure 107/71 O2 Sat by Pulse 99 99 Oximetry - Laboratory Findings CBC and BMP: 11/24/20 08:39 11/24/20 08:39 Abnormal Lab Findings: Abnormal Labs 11/22/20 11/22/20 11/23/20 22:24 22:24 04:18 RBC 3.18 L MCV 121 H MCH 44 H MCHC 37 H Lymph % (Auto) 38.4 H Mcduffie % (Auto) 10.2 H Mcduff[place] # (Auto) PT Chloride 107.5 H Carbon Dioxide 19 L BUN 5 L Creatinine Glucose 102 H Urine WBC (Auto) 15.0 H 11/24/20 11/24/20 11/24/20 08:39 08:39 08:39 RBC 3.03 L MCV 122 H MCH 42 H MCHC 35 H Lymph % (Auto) 36.5 H [place] % (Auto) 12.5 H [place] # (Auto) 1.1 H PT 15.0 H Chloride Carbon Dioxide BUN Creatinine 0.4 L Glucose Urine WBC (Auto)
[2020-11-24 17:07] LABS: Basophils CSF 0 %
--- NOTE | 2020-11-24 17:50 | Electrocardiograph Report ---
[facility] Test Date: 2020-11-23 Test Time: 12:23:49 Pat Name: MCKAYLA LAIRD Department: Room: A372 Gender: F Case Coordinator: [id number] : 1985 Requested By: DAYSI HAWLEY Order Number: [id number] Reading MD: Matias Morgan Measurements Intervals Lund Rate: 105 P: 71 NC: 144 QRS: 63 QRSD: 80 T: 269 QT: 341 QTc: 451 Interpretive Statements Sinus tachycardia Nonspecific T abnormalities, diffuse leads No previous ECG available for comparison Electronically Signed On 11-24-2020 17:49:51 EDT by Matias Morgan
[2020-11-25] MEDS: traMADol 50 MG TAB PO PRN (03:21)
[2020-11-25 05:20] VITALS: BP 95/65
[2020-11-25] MEDS: GABAPENTIN 100 MG CAP PO SCH (05:31)
[2020-11-25] MEDS: HEPARIN 5,000 UNIT/1 ML VIAL SUB-Q SCH (05:32)
--- NOTE | 2020-11-25 08:15 | Discharge Summary ---
Providers - Providers Date of Admission: 11/24/20 08:33 Attending physician: KARL VARGAS 11/23/20 Consult to Physician [CONS] Routine Comment: Consulting Provider: BOLIVAR DAWSON Physician Instructions: Reason For Exam: Numbness hands. 11/23/20 01:09 Occupational Therapy Evaluate and Treat [CONS] Routine Comment: Reason For Exam: Neuro deficits Physical Therapy Evaluation and Treat [CONS] Routine Comment: Reason For Exam: Neuro deficits Hospitalization Condition: Stable Hospital course: 35-year-old female with chronic peripheral neuropathy was brought to the emergency room because of numbness in her jaw, both hands, and both legs progressively worsening for several months. For the last several weeks, symptoms have been worse in the right arm and right leg. Additionally, patient endorses blurred vision, more pronounced on the left eye, as well as intermittent headaches. No fall, trauma, or injury. No recent travel. No recent illnesses. No recent vaccinations. No history of prior surgeries. Patient was diagnosed with peripheral neuropathy at another emergency department and referred to a neurologist for further outpatient evaluation. However, she was unable to comply with follow-up instructions due to financial constraints. Patient states her ability to walk has progressively worsened to the point where she cannot ambulate without assistance, and she has been experiencing bladder incontinence for several weeks. Patient was seen and evaluated in the emergency department. Neurology team consulted. All lab and imaging studies reviewed. Patient with CT scan of the head which showed no acute findings. Patient underwent MRI/MRI of the brain which showed dorsal column abnormality. Patient convalesced well during hospital course with improvement in symptoms with steroid therapy. Patient medically optimized and back to usual state of health. Patient cleared for discharge home as per neurology service. Patient seen and evaluated prior to discharge no significant new physical exam findings. Patient discharged home and instructed to follow-up primary care physician within 3 to 5 days and to follow-up with neurology team as needed. 35 minutes dedicated to patient discharge and coordination of care. Disposition: [id number] HOME UNDER HOME [facility] Final Discharge Diagnosis (Prints w/discharge instructions): Peripheral neuropathy Core Measure Documentation - Palliative Care Palliative Care/ Comfort Measures: Not Applicable - Core Measures Any of the following diagnoses?: none Exam - Constitutional Vitals: Temp Pulse Resp BP Pulse Ox 99.0 F 67 18 95/65 99 11/25/20 03:09 11/25/20 03:09 11/25/20 03:09 11/25/20 03:09 11/25/20 03:09 General appearance: Present: no acute distress, well-nourished - EENT Eyes: Present: PERRL ENT: hearing intact, clear oral mucosa - Neck Neck: Present: supple, normal ROM - Respiratory Respiratory effort: normal Respiratory: bilateral: CTA - Cardiovascular Heart Sounds: Present: S1 & S2. Absent: rub, click - Extremities Extremities: pulses symmetrical, No edema Peripheral Pulses: within normal limits - Abdominal General gastrointestinal: Present: soft, non-tender, non-distended, normal bowel sounds Female genitourinary: Present: normal - Integumentary Integumentary: Present: clear, warm, dry - Musculoskeletal Musculoskeletal: gait normal, strength equal bilaterally - Psychiatric Psychiatric: appropriate mood/affect, intact judgment & insight - Neurologic Neurologic: CNII-XII intact, moves all extremities Plan Activity: advance as tolerated Diet: regular Follow up with: TRUDY MCDUFFIE [Other] - 7 Days Prescriptions: Prednisone [predniSONE 10 mg (6-Day Pack, 21 Tabs)] 10 mg PO .TAPER #1 tab.ds.pk Cyanocobalamin [Vitamin B-12] 1,000 mcg IM Q2W #4 vial Other Discharge Orders: Physicial Therapy (Amb) Location: None Selected
[2020-11-25] MEDS: ASPIRIN 325 MG TAB PO SCH (10:15)
[2020-11-25] MEDS: cefTRIAXone/NS 2 GM/100 ML 2 GM/100 ML BAG IV SCH (10:15)
[2020-11-25] MEDS: FAMOTIDINE 20 MG TAB PO SCH (10:15)
[2020-11-25] MEDS: MULTIVITAMINS ,THERAPEUTIC TAB PO SCH (10:15)
--- NOTE | 2020-11-27 09:33 | Fluoroscopy Report ---
LUMBAR PUNCTURE INDICATION : Neuropathy PROCEDURE: The risks (including but not limited to bleeding, infection, and spinal headache) and snug efits were explained to the patient and informed consent was obtained. A time out procedure was perf ormed. The procedure site was prepped and draped in the usual sterile fashion and lidocaine was used for local anesthesia. Under fluoroscopic guidance, a 22-gauge spinal needle was advanced into the L3-4 interlaminar space. The opening pressure was 120 mm H2O which was calculated by adding the length of the needle (9 cm) to the height of the CSF column. 4 separate collection tubes were used to obtain 1-2 mL's of CSF each S amples were sent to the lab per the ordering physician specifications for further evaluation. The patient tolerated the procedure well with no complications. IMPRESSION: Successful lumbar puncture as outlined above. Opening pressure was 120 mm H20. Fluoroscopic time: 0.7 Number of fluoroscopic images: 1 Signer Name: Joel Schafer Jr, MD Signed: 11/27/2020 9:29 AM Workstation Name: [id number]
== END 2020-11-25 11:11 | disposition home health service (06) | DRG 74 ==
LOC: ED 21:33 → 3A 11-23 01:09 → OBSVTOIN 11-24 08:33
PROVIDERS: ADMIT Hospitalist; ATTEND Internal Medicine
PROC: 009U3ZX Drainage of Spinal Canal, Percutaneous Approach, Diagnostic (ICD-10-PCS; principal; 2020-11-24)
PROC: B01B1ZZ Fluoroscopy of Spinal Cord using Low Osmolar Contrast (ICD-10-PCS; 2020-11-24)
DX: G62.9 Polyneuropathy, unspecified (principal); R20.0 Anesthesia of skin; Z79.01 Long term (current) use of anticoagulants
CPT/HCPCS: 36415; 62270; 62328; 70450; 70544; 70551; 72141; 80048; 80053; 80307; 81001; 82607; 82747; 82947; 83735; 84160; 84443; 84484; 84703; 85025; 85610; 85730; 86592; 87086; 87116; 89051; 93005; 93306; 96361; 96374; 96375; G0378; A9270-GY; J0696; J1644; J2060; J2930; J7030